=== PATIENT | female | born 1980 | race Caucasian/White ===

== ENCOUNTER 2017-05-30 12:36 | Day surgery (SDC) | payer OTHER ==
[~2017-05-30] VITALS: Ht 172.7 cm; Wt 75.3 kg
[~2017-05-30 12:36] MED LIST: ABILIFY15 MG PO; BACLOFEN20 MG PO; BENADRYL ALLERG25 MG PO; CATAPRES0.2 MG PO; CONCERTA27 MG PO; INDERAL10 MG PO; LAMICTAL XR300 MG PO; LAMICTAL25 MG PO; LATUDA40 MG PO; LIBRIUM25 MG PO; LITHIUM CARBON300 M2 PO; LITHIUM CARBON450 MG PO; MOBIC15 MG PO; NALTREXONE HCL50 MG PO; NEURONTIN400 MG PO; NEXPLANON68 MG SC; NO HOME MEDS; ONE DAILY TABL1 EACH PO; PERCOCET 5/31 TABLET PO; THIAMINE HCL100 MG PO
== END 2017-05-30 14:50 | disposition home or self-care (01) ==
LOC: PAIN 12:36 → SDC 13:15 → PAIN 14:50
DX: M47.26 Other spondylosis with radiculopathy, lumbar region (principal); M51.16 Intervertebral disc disorders with radiculopathy, lumbar region; Z87.891 Personal history of nicotine dependence; M25.562 Pain in left knee; M25.561 Pain in right knee; Z79.891 Long term (current) use of opiate analgesic
CPT/HCPCS: J1030; J2250; J3010; S0020

== ENCOUNTER 2017-08-10 10:48 | Day surgery (SDC) | payer OTHER ==
[~2017-08-10] VITALS: Ht 172.7 cm; Wt 75.3 kg
== END 2017-08-10 12:30 | disposition home or self-care (01) ==
LOC: PAIN 10:48
DX: M47.816 Spondylosis without myelopathy or radiculopathy, lumbar region (principal); M54.16 Radiculopathy, lumbar region; M47.814 Spondylosis without myelopathy or radiculopathy, thoracic region; M47.812 Spondylosis without myelopathy or radiculopathy, cervical region; M54.12 Radiculopathy, cervical region; F41.9 Anxiety disorder, unspecified; F11.20 Opioid dependence, uncomplicated; Z87.891 Personal history of nicotine dependence
CPT/HCPCS: J1030; J2250; J3010; S0020

== ENCOUNTER 2017-10-02 09:14 | Day surgery (SDC) | payer OTHER ==
[~2017-10-02] VITALS: Ht 172.7 cm; Wt 72.6 kg
[~2017-10-02 09:14] MED LIST changes: +CONCERTA36 MG PO
== END 2017-10-02 10:35 | disposition home or self-care (01) ==
LOC: PAIN 09:14 → SDC 09:45 → PAIN 09:45
DX: M47.816 Spondylosis without myelopathy or radiculopathy, lumbar region (principal); M51.26 Other intervertebral disc displacement, lumbar region; M54.16 Radiculopathy, lumbar region; M79.1 Myalgia; F31.81 Bipolar II disorder; F11.20 Opioid dependence, uncomplicated; Z87.891 Personal history of nicotine dependence
CPT/HCPCS: J1030; J2250; S0020

== ENCOUNTER 2017-10-17 09:15 | Day surgery (SDC) | payer OTHER ==
[~2017-10-17] VITALS: Ht 172.7 cm; Wt 71.7 kg
== END 2017-10-17 10:48 | disposition home or self-care (01) ==
LOC: PAIN 09:15 → SDC 09:45 → PAIN 09:45
PROC: BR161ZZ Fluoroscopy of Lumbar Facet Joint(s) using Low Osmolar Contrast (ICD-10-PCS; principal; 2017-10-17)
PROC: 3E0T3TZ Introduction of Destructive Agent into Peripheral Nerves and Plexi, Percutaneous Approach (ICD-10-PCS; principal; 2017-10-17)
DX: M47.816 Spondylosis without myelopathy or radiculopathy, lumbar region (principal); M51.16 Intervertebral disc disorders with radiculopathy, lumbar region; M79.1 Myalgia; F11.20 Opioid dependence, uncomplicated; Z87.891 Personal history of nicotine dependence
CPT/HCPCS: J1030; J2250; S0020